=== PATIENT | female | born 2000 | race Caucasian/White ===

== ENCOUNTER → 2022-08-14 | Outpatient (CLI) | payer BC | LOC: COL.RAD 14:00 | DX: M25.552 Pain in left hip (principal) | CPT/HCPCS: A9575; Q9967 ==

== ENCOUNTER → 2023-09-24 | Outpatient (CLI) | payer BC | LOC: MHCPAIN 09:48 | DX: M79.671 Pain in right foot (principal); M79.672 Pain in left foot; M54.50 Low back pain, unspecified ==

== ENCOUNTER → 2023-10-15 | Outpatient (CLI) | payer BC | LOC: MHCPAIN 13:25 | DX: M79.671 Pain in right foot (principal); M79.672 Pain in left foot; M54.50 Low back pain, unspecified; M53.3 Sacrococcygeal disorders, not elsewhere classified | CPT/HCPCS: G0463 ==